=== PATIENT | male | born 1995 | race American Indian/Alaskan Native ===

== ENCOUNTER 2018-10-09 19:10 | Emergency (ER) | payer OTHER ==
[2018-10-09 19:32] VITALS: BP 118/85
--- NOTE | 2018-10-09 19:53 | Emergency Department Report ---
Blank Doc - Documentation Documentation: This is a 23-year-old male that presents with cough. Stated has midsternum ch est pain during cough only. Denies any SOB. Currently denies any chest pain and stated is only during coughing. This initial assessment/diagnostic orders/clinical plan/treatment(s) is/are subject to change based on patient's health status, clinical progression and re- assessment by fellow clinical providers in the ED. Further treatment and workup at subsequent clinical providers discretion. Patient/guardians urged not to elope from the ED as their condition may be serious if not clinically assessed and managed. Initial orders include: 1- Patient sent to [facility] for further evaluation and treatment 2- CXR
[2018-10-09] MEDS ORDERED: IBUPROFEN PO ONE (21:15)
--- NOTE | 2018-10-09 21:17 | Emergency Department Report ---
ED General Adult HPI - General Chief complaint: Chest Pain Stated complaint: CHEST PAIN Time Seen by Provider: 10/09/18 19:52 Source: patient Mode of arrival: Ambulatory Limitations: No Limitations - History of Present Illness Initial comments: 23-year-old -[place] male presents to the emergency room for left chest pain states when he had coughed too hard he had heard something pop in his chest. Since then he has been having chest pain for a week. Patient denies any nausea no vomiting no fever no chills. Patient states that his cough has improved patient reports that his chest discomfort is worse with cough or chest flexion. Patient has taken nothing for pain. Patient has no past medical history currently takes no medications on a daily basis and has no known drug allergies. Onset/Timin -: week(s) Location: chest Radiation: non-radiation Severity scale (0 -10): 0 Quality: sharp (only with coughing and moving) Consistency: intermittent Improves with: rest Worsens with: movement, other (coughing, sneezing) Associated Symptoms: denies other symptoms Treatments Prior to Arrival: none - Related Data Previous Rx's Medication Instructions Recorded Last Taken Type Phenazopyridine [Pyridium] 200 mg PO Q8H #9 tab 04/02/15 Unknown Rx metroNIDAZOLE [Flagyl TAB] 250 mg PO Q8HR #21 tablet 04/02/15 Unknown Rx Naproxen [Naprosyn] 500 mg PO BID PRN #20 tablet 10/09/18 Unknown Rx Allergies Allergy/AdvReac Type Severity Reaction Status Date / Time No Known Allergies Allergy Unverified 03/29/15 20:14 ED Review of Systems ROS: Stated complaint: CHEST PAIN Other details as noted in HPI Comment: All other systems reviewed and negative ED Past Medical Hx - Past Medical History Previous Medical History?: No - Surgical History Additional Surgical History: Left eye surgery- 2007 - Social History Smoking Status: Current Some Day Smoker Substance Use Type: None - Medications Home Medications: Home Medications Medication Instructions Recorded Confirmed Last Taken Type Phenazopyridine [Pyridium] 200 mg PO Q8H #9 tab 04/02/15 Unknown Rx metroNIDAZOLE [Flagyl TAB] 250 mg PO Q8HR #21 tablet 04/02/15 Unknown Rx Naproxen [Naprosyn] 500 mg PO BID PRN #20 tablet 10/09/18 Unknown Rx ED Physical Exam - General Limitations: No Limitations General appearance: alert, in no apparent distress - Head Head exam: Present: atraumatic, normocephalic - Eye Eye exam: Present: normal appearance - ENT ENT exam: Present: mucous membranes moist - Neck Neck exam: Present: normal inspection - Respiratory Respiratory exam: Present: normal lung sounds bilaterally, chest wall tenderness (mid sternal). Absent: respiratory distress - Cardiovascular Cardiovascular Exam: Present: regular rate, normal rhythm. Absent: systolic murmur, diastolic murmur, rubs, gallop - GI/Abdominal GI/Abdominal exam: Present: soft, normal bowel sounds - Rectal Rectal exam: Present: deferred - Extremities Exam Extremities exam: Present: normal inspection - Back Exam Back exam: Present: normal inspection, full ROM - Neurological Exam Neurological exam: Present: alert, oriented X3, normal gait - Psychiatric Psychiatric exam: Present: normal affect, normal mood - Skin Skin exam: Present: warm, dry, intact, normal color. Absent: rash ED Course Vital Signs 10/09/18 10/09/18 10/09/18 19:19 19:52 21:31 Temperature 97.9 F 97.9 F Pulse Rate 84 78 Respiratory 18 18 18 Rate Blood Pressure 118/85 118/85 O2 Sat by Pulse 98 98 99 Oximetry 10/09/18 21:43 Temperature Pulse Rate Respiratory 18 Rate Blood Pressure O2 Sat by Pulse Oximetry ED Medical Decision Making - Radiology Data Radiology results: report reviewed Patient: ANGIE SAUCEDO JR R#: [id number] : 1995 Acct:[id number] Age/Sex: 23 / M ADM Date: 10/09/18 Loc: ED Attending Dr: Ordering Physician: KELI ARELLANO NP Date of Service: 10/09/18 Procedure(s): XR chest routine 2V Accession Number(s): [id number] cc: KELI ARELLANO NP Fluoro Time In Minutes: PROCEDURE: XR CHEST ROUTINE 2V TECHNIQUE: PA and lateral chest radiographs were obtained. HISTORY: cough COMPARISONS: None. FINDINGS: Heart: Normal. Mediastinum/Vessels: Normal. Lungs/Pleural space: Normal. Bony thorax: No acute osseous abnormality. IMPRESSION: Normal examination. This document is electronically signed by Fermin Morales MD., Oct 09 2018 09:51:32 PM ET Transcribed By: SANTIAGO Dictated By: GEMMA MORALES MD Electronically Authenticated By: GEMMA MORALES MD Signed Date/Time: 10/09/182152 DD/ 41 TD/TT: 10/09/182041 - Medical Decision Making 23-year-old -[place] male presents to the emergency room for intermittent chest pain after hearing something snapped in chest. Chest x-ray is pending. Ibuprofen 600 mg orally for pain management. Discussed the patient chest x-ray is negative we will treat him for costochondritis which consist of NSAIDs. Patient verbalized understanding. Critical care attestation.: If time is entered above; I have spent that time in minutes in the direct care of this critically ill patient, excluding procedure time. ED Disposition Clinical Impression: Costochondritis, acute Disposition: DC-01 TO HOME OR SELFCARE Is pt being admited?: No Does the pt Need Aspirin: No Condition: Stable Instructions: Costochondritis (ED) Additional Instructions: Take pain medication as needed. Increase her water intake but taking pain medication follow up with a primary care provider if his symptoms persist or gets worse Prescriptions: Naproxen [Naprosyn] 500 mg PO BID PRN #20 tablet PRN Reason: Pain , Severe (7-10) Referrals: MARIYA ROWAN MD [Primary Care Provider] - 3-5 Days Forms: Work/School Release Form(ED)
--- NOTE | 2018-10-09 21:53 | XRay Report ---
PROCEDURE: XR CHEST ROUTINE 2V TECHNIQUE: PA and lateral chest radiographs were obtained. HISTORY: cough COMPARISONS: None. FINDINGS: Heart: Normal. Mediastinum/Vessels: Normal. Lungs/Pleural space: Normal. Bony thorax: No acute osseous abnormality. IMPRESSION: Normal examination. This document is electronically signed by Fermin Avila MD., Oct 09 2018 09:51:32 PM ET
== END 2018-10-09 21:50 | disposition home or self-care (01) ==
LOC: ED 19:10
DX: M94.0 Chondrocostal junction syndrome [Tietze] (principal); F17.200 Nicotine dependence, unspecified, uncomplicated
CPT/HCPCS: 71046; 93005; 93010; 99283

== ENCOUNTER 2018-10-20 21:07 | Emergency (ER) | payer OTHER ==
--- NOTE | 2018-10-20 21:35 | Emergency Department Report ---
Blank Doc - Documentation Documentation: This is a 23-year-old male that presents with n/v. Stated has yellow colored vomit. Stated was dark red x1 episode but not now. This initial assessment/diagnostic orders/clinical plan/treatment(s) is/are subject to change based on patient's health status, clinical progression and re- assessment by fellow clinical providers in the ED. Further treatment and workup at subsequent clinical providers discretion. Patient/guardians urged not to elope from the ED as their condition may be serious if not clinically assessed and managed. Initial orders include: 1- Patient sent to [facility] for further evaluation and treatment 2- labs <KELI ARELLANO - Last Filed: 10/20/18 21:34> - Documentation Documentation: A physician and/or other qualified medical personnel has recommended that the patient receive further examination and/or treatment beyond their Medical Screening Exam. The risks and benefits were explained. The patient was informed of their right to emergency care. Patient left before final dis position of their medical condition. This note has been generated by me, Dr. Zachary Rod III, MD, the Welfare Manager for the emergency department. I have not seen this patient personally. <ZACHARY ROD - Last Filed: 10/21/18 11:45>
[2018-10-20 21:40] VITALS: BP 137/88
[2018-10-20 22:12] LABS: Basophils # (Auto) 0.1 K/mm3 (0.0-0.1); Basophils % (Auto) 2.1 % (0.0-1.8); Eosinophils # (Auto) 0.1 K/mm3 (0.0-0.4); Eosinophils % (Auto) 2.7 % (0.0-4.3); Hematocrit 44.6 % (35.5-45.6); Hemoglobin 15.1 gm/dl (11.8-15.2); Lymphocytes # (Auto) 1.5 K/mm3 (1.2-5.4); Lymphocytes % (Auto) 35.2 % (13.4-35.0); Mean Corpuscular HGB Conc 34 % (32-34); Mean Corpuscular Volume 93 fl (84-94); Monocytes # (Auto) 0.5 K/mm3 (0.0-0.8); Monocytes % (Auto) 10.8 % (0.0-7.3); Platelet Count 339 K/mm3 (140-440); Red Blood Count 4.77 M/mm3 (3.65-5.03); Red Cell Distribution Width 14.1 % (13.2-15.2)
[2018-10-20 22:13] LABS: Alanine Aminotransferase 18 units/L (7-56); Albumin 4.4 g/dL (3.9-5); BUN/Creatinine Ratio 15; Blood Urea Nitrogen 12 mg/dL (9-20); Hemolysis Index 23
--- NOTE | 2018-10-20 22:21 | XRay Report ---
PROCEDURE: XR ABD SERIES W CXR 1V TECHNIQUE: Abdominal series obtained. HISTORY: n/v COMPARISONS: None FINDINGS: Nonspecific, nonobstructive bowel gas pattern. No gross evidence for free air. No focal consolidation or effusion visualized. No pneumothorax visualized. IMPRESSION: Nonspecific, nonobstructive bowel gas pattern.. This document is electronically signed by Marybel Moore MD., October 20 2018 10:19:48 PM ET
[2018-10-20 23:42] LABS: Amorphous Crystals,Urine 3+; Bilirubin,Urine NEG (Negative); Blood,Urine NEG (Negative); Color,Urine Yellow (Yellow); Mucus,Urine FEW /HPF; Urobilinogen,Urine < 2.0 mg/dL (<2.0); WBC,Urine < 1.0 /HPF (0.0-6.0)
== END 2018-10-21 00:40 | disposition left against medical advice (07) ==
LOC: ED 21:07
DX: R11.2 Nausea with vomiting, unspecified (principal); Z53.21 Procedure and treatment not carried out due to patient leaving prior to being seen by health care provider
CPT/HCPCS: 36415; 74022; 80053; 81001; 83690; 85025